=== PATIENT | female | born 1980 | race Caucasian/White ===

== ENCOUNTER 2024-02-27 16:11 | Emergency (ER) | payer SELFPAY ==
[2024-02-27 17:01] LABS: HEMATOCRIT 39.8 % (37.0-47.0); HEMOGLOBIN 12.6 gm/dl (12.0-16.0); MEAN CORPUSCULAR HEMOGLOBIN 25.8 pg (28.0-32.0); MEAN CORPUSCULAR HGB CONC 31.7 g/dl (32.0-36.0); MEAN CORPUSCULAR VOLUME 81.6 fl (83.0-99.0); PLATELET COUNT,PLT 371 K/mm3 (150-400); RED BLOOD CELL COUNT 4.88 M/mm3 (4.10-5.30)
[2024-02-27] MEDS: Ondansetron 4 MG/2 ML SDV IVPUSH ONE (17:01)
[2024-02-27] MEDS: Sodium Chloride 0.9% 1,000 ML IV STA ×2 (17:01→20:26)
[2024-02-27 17:38] LABS: A/G RATIO 0.9 (1-2); ALBUMIN 3.6 g/dl (3.4-5.0); ANION GAP 15.1 (5-15); BILIRUBIN TOTAL 0.2 mg/dL (0.2-1.0); BUN/CREATININE RATIO 8.8 (14-18); CALCIUM 8.4 mg/dL (8.5-10.1); CREATININE 0.8 mg/dL (0.55-1.02); EST CRCL DRUG DOSING (CG) 87.27 mL/min; ETHANOL BLOOD MEDICAL 0.42 gm% (0.00); POTASSIUM,K 4.1 mEq/L (3.5-5.1); PROTEIN TOTAL,TP 7.8 g/dl (6.4-8.2); TSH 0.301 uIU/mL (0.358-3.74)
[2024-02-27 17:41] LABS: ANISOCYTOSIS 1+ SLIGHT; BAND PERCENT MAN 0 % (0-10); BASOPHILS PERCENT MAN 0 (0.1-1.2); EOSINOPHILS PERCENT MAN 2 % (0.7-5.8); HYPOCHROMASIA FEW; LYMPHOCYTES % ATYPICAL MANUAL 0 %; LYMPHOCYTES PERCENT MAN 64 % (20-40); MONOCYTES PERCENT MAN 2 % (2-10); PLATELET COUNT ESTIMATE ADEQUATE
[2024-02-27 21:49] LABS: AMPHETAMINES SCREEN, URINE NEGATIVE (CUTOFF=500); BARBITURATE SCREEN,URINE NEGATIVE (CUTOFF=200); BENZODIAZEPINES SCREEN,URINE PRESUMPTIVE POSITIVE (CUTOFF=150); BUPRENORPHINE SCREEN,URINE NEGATIVE (CUTOFF=10); METHADONE SCREEN, URINE NEGATIVE (CUTOFF=200); METHAMPHETAMINES SCREEN, URINE NEGATIVE (CUTOFF=500); OXYCODONE SCREEN,URINE NEGATIVE (CUT0FF=100); THC SCREEN,URINE 20 NG/ML NEGATIVE (CUTOFF=50)
[2024-02-27] MEDS: Acetaminophen 325 MG Tab PO ONE (23:25)
[2024-02-28] MEDS: Acetaminophen 325 MG Tab PO ONE (08:16)
[2024-02-28] MEDS: Ondansetron 4 MG Tab.DIS PO ONE (08:16)
[2024-02-28] MEDS: LORazepam 2 MG/ML SDV IVPUSH ONE ×2 (10:07→17:22)
== END 2024-02-28 17:30 ==
LOC: JD.ED 16:11
DX: R45.851 Suicidal ideations (principal); F32.A Depression, unspecified; F10.20 Alcohol dependence, uncomplicated; Z79.899 Other long term (current) drug therapy; Z90.49 Acquired absence of other specified parts of digestive tract; Z90.710 Acquired absence of both cervix and uterus; Z86.16 Personal history of COVID-19
CPT/HCPCS: 36415; 70450; 80053; 80143; 80179; 80306; 80307; 81025; 84443; 85007; 85027; 93005; 96361; 96374; 96375; 96376; 99285; A9270; J2060; J2405; J7030; 93010